=== PATIENT | male | born 1970 | race American Indian/Alaskan Native ===

== ENCOUNTER 2017-04-13 11:25 | Day surgery (SDC) | payer BC ==
[~2017-04-13 11:25] MED LIST: DIPRIVAN 10 MG/ML IV ONE
[2017-04-13] MEDS ORDERED: WATER FOR IRRIG STERILE ONE (11:41)
[2017-04-13] MEDS ORDERED: WATER FOR IRRIG STERILE IR ONE (11:41)
[2017-04-13] MEDS ORDERED: NACL 0.9% 1000 ML 1,000 ML IV SCH (12:00)
[2017-04-13] MEDS ORDERED: DIPRIVAN 10 MG/ML IV ONE (12:06)
--- NOTE | 2017-04-13 12:45 | Post Operative Note ---
Pre-op diagnosis: screening colonsocopy, incidental: hematochezia Post-op diagnosis: other (small colon polyp, internal hemorrhoids, hypertrophied anal papillae) Findings: 1. One < 5 mm sessile polyp removed 2. Internal hemorrhoids s/p banding 3. hypertrophied anal papillae Procedure: Colonoscopy with hemorrhoidal banding and biopsy polypectomy Anesthesia: MAC Surgeon: CORI DAY Estimated blood loss: minimal Pathology: list (Jar A - descending colon polyp) Specimen disposition: to lab Condition: stable Disposition: same day
--- NOTE | 2017-04-13 12:49 | Operative Report ---
Operative Report Operative Report: Colonoscopy Procedure Note with Hemorrhoidal banding and Biopsy (polypectomy) Date of procedure: 04/13/2017 Endoscopist: Prabhu Frey Pre-op diagnosis/indication: screening colonoscopy, incidental: hematochezia Post-op diagnosis: small colon polyp, internal hemorrhoids, hypertrophied anal papillae MEDICATIONS: MAC COMPLICATIONS: No immediate complications ESTIMATED BLOOD LOSS: minimal DESCRIPTION OF PROCEDURE: After consent was obtained, the patient was placed in the left lateral decubitis position. The fujinon colonoscope was inserted into the rectum under direct vision, and advanced to the cecum without difficulty. The quality of prep was fair. The patient tolerated the procedure well. The patient's vital signs were monitored continuously throughout the procedure. FINDINGS: There was one < 5 mm sessile polyp in the descending colon. The polyp was removed with cold biopsy forceps and retrieved. Moderate sized internal hemorrhoids were seen on retroflexion view. Hemorrhoidal banding was performed (3 bands placed) successfully. Hypertrophied anal papillae IMPRESSION: 1. Small colon polyp removed as above. 2. Internal hemorrhoids s/p banding 3. Hypertrophied anal papillae RECOMMENDATIONS: -miralax daily to avoid constipation/straining -topical ointment daily as needed -follow-up pathology -repeat colonoscopy in 5 years
--- NOTE | 2017-04-13 13:07 | Anesthesia Consultation ---
Anesthesia Consult and Med Hx Date of service: 04/13/17 - Airway Anesthetic Teeth Evaluation: Good ROM Head & Neck: Adequate Mental/Hyoid Distance: Adequate Mallampati Class: Class II Intubation Access Assessment: Probably Good - Pulmonary Exam CTA: Yes - Cardiac Exam Cardiac Exam: RRR - Pre-Operative Health Status ASA Pre-Surgery Classification: ASA2 Proposed Anesthetic Plan: MAC - Pulmonary Hx Asthma: Yes - Cardiovascular System Hx Hypertension: Yes
--- NOTE | 2017-04-13 13:07 | Anesthesia Day of Surgery ---
Anesthesia Day of Surgery - Day of Surgery Patient Examined: Yes Patient H&P Reviewed: Yes Patient is NPO: Yes
[2017-04-13 13:19] VITALS: BP 139/86
--- NOTE | 2017-04-13 14:23 | Post Anesthesia Evaluation ---
- Post Anesthesia Evaluation Patient Participated: Yes Airway Patent: Yes Stable Respiratory Function: Yes Nausea/Vomiting: No Temp > 96.8F: Yes Pain Manageable: Yes Adequeate Hydration: Yes Anesthesia Complications: No
== END 2017-04-13 11:26 | disposition home or self-care (01) ==
LOC: GIO 11:25
PROVIDERS: ATTEND Internal Medicine Gastroenterology
DX: K92.1 Melena (principal); K62.89 Other specified diseases of anus and rectum; K64.8 Other hemorrhoids; K59.00 Constipation, unspecified; I10 Essential (primary) hypertension; J45.909 Unspecified asthma, uncomplicated; E66.9 Obesity, unspecified; Z88.5 Allergy status to narcotic agent; Z68.41 Body mass index [BMI] 40.0-44.9, adult
CPT/HCPCS: 45380; 45398; 88305; J2704